=== PATIENT | female | born 1990 | race Two or more races ===

== ENCOUNTER 2019-12-06 12:18 | Inpatient (IN) | payer OTHER ==
[~2019-12-06] VITALS: Ht 175.3 cm; Wt 83.2 kg
[2019-12-06] MEDS ORDERED: PRENTAB9 PO (12:33)
[2019-12-06 12:40] VITALS: BP 113/69
[2019-12-06] MEDS ORDERED: miSOPROStol 50 MCG 1/2 TAB (S0191) PO ONE (14:30)
[2019-12-06 14:38] LABS: HEMATOCRIT 36.2 % (36.0-47.0); HEMOGLOBIN 11.6 g/dl (12.0-15.5); MEAN CORPUSCULAR HEMOGLOBIN 27.2 pg (27.0-33.0); PLATELET COUNT, AUTOMATED 269 10^3/uL (150-450); RED BLOOD COUNT 4.26 10^6/uL (4.00-5.40); WHITE BLOOD COUNT 10.1 10^3/uL (4.0-10.0)
--- NOTE | 2019-12-06 15:41 | HPE ---
DATE OF ADMISSION: 12/06/2019 A 29-year-old 2, para 1, last menstrual period (LMP) 02/22/2019, estimated date of confinement (EDC) 11/29/2019 at 40 and 3/7 weeks for induction of labor post term. Risk factor is anemia. PAST HISTORY: February 2012, 39 and five weeks spontaneous vaginal delivery, 8 pounds, 7 ounces. LABORATORY DATA: A+, HIV negative, hepatitis negative, RPR negative. Varicella immune. Pap shows ASCUS, HPV positive. Urine was negative. Gonorrhea and chlamydia are negative. One-hour GTT was 100. GBS is positive. On pelvic examination, the cervix is posterior, fingertip, high, almost dilatable, fixed and closed. No vaginal bleeding or discharge. Blood pressure 113/69, respirations are 18, pulse is 91. Urine is 10.00, pH of 6, and the rest is negative. The rest examination is unremarkable. She is normocephalic, atraumatic. Neck: Full range of motion. Pupils equal and reactive to light. Distal pulses are symmetrical. No evidence of deep vein thrombosis (DVT), pulmonary embolism (PE) or superficial phlebitis. Chest is clear bilaterally to bases. No wheezes or rhonchi. No costovertebral angle (CVA) tenderness. Category 1 strip. She has a nontender uterus. Four quadrant bowel sounds are noted. No rashes, lesions or pruritus. No arthralgia or myalgia. No complaint of joint pain. No complaint cough, wheeze, shortness of breath, or dyspnea on exertion. No bleeding. Neurologically complete. No incontinence, urgency, or frequency. No nausea, vomiting, diarrhea or constipation. No diabetic issues. No heat or cold sensitivity. GYNECOLOGIC ISSUES: She is human papillomavirus (HPV) positive, atypical squamous cells of undetermined significance (ASCUS) Pap. Past medical and surgical history is unremarkable. Family history is noncontributory. She does not smoke, drink, or abuse drugs. She is to a soldier. No domestic violence and good support system. We discussed labor and delivery in which delivery is vaginal delivery through the vagina, the possibility of the use of forceps or vacuum devices if needed for maternal and indications. These are devices that can assist with vaginal delivery when normal pushing efforts cannot achieve delivery on their own or when delivery is needed in an emergency for baby's well-being. Medications may be used to induce or augment labor in order achieve vaginal delivery. An episiotomy may be required in order deliver baby through the vagina. You may also require repair of any lacerations or tears of the vagina or vulva that are caused by delivery. In some cases, emergencies can arise that may require emergency section which is done only for medical indications. This will be discussed with you prior to implementation and it is probably safer for the mother and baby than continuing labor and is only performed when critical indications are present. The risk of vaginal delivery include but not limited to bleeding, infection, injury to the vagina, pelvic structures, injury to the baby, damage to the uterus, reaction to anesthesia, uterine rupture, risk of hysterectomy for life-threatening bleeding situations, medications used to induce or augment labor increase may increase the risk for infection, uterine tachysystole, uterine rupture, heart rate abnormalities, need for emergency section or possible hysterectomy and bleeding. The use of forceps or vacuums may increase the risk of perineal or vaginal lacerations, risk of injury to the bowel or bladder, and the risks to the baby may include scratches, hematomas on the head or intracranial bleed. After understanding and answering all questions, a 30-minute discussion, it was safe to proceed. Our plan of management is IV fluids, Cytotec by mouth, reassessment in four hours, and group B Streptococcus (GBS) prophylaxis when in labor.
[2019-12-06 17:04] VITALS: BP 121/71
[2019-12-06] MEDS ORDERED: miSOPROStol 25 MCG 1/4 TAB (S0191) PO ONE (18:30)
[2019-12-06 19:52] VITALS: BP 120/73
[2019-12-06] MEDS ORDERED: PENICILLIN G POTASSIUM 5 MU VIAL As Ordered ONE (23:46)
[2019-12-07] VITALS (41 sets, daily range): BP systolic 99–136; BP diastolic 58–89
[2019-12-07] MEDS ORDERED: PENICILLIN G POTASSIUM IV 5 MU in D5W MINI-BAG PLUS 100 ML IV ONE (00:15)
[2019-12-07] MEDS ORDERED: FENTANYL 2MCG/ML ROPIVACAINE 0.2% IN 0.9% NACL 100ML IVBAG As Ordered ONE (01:39)
[2019-12-07] MEDS ORDERED: FENTANYL/ROPIVACAINE/NACL BAG 100 ML EPIDURAL SCH (03:15)
[2019-12-07] MEDS ORDERED: ePHEDrine SULFATE 25 MG/5 ML(5MG/ML) SYRINGE IV PRN (03:15)
[2019-12-07] MEDS ORDERED: EPIDURAL COMMENT XX SCH (03:15)
[2019-12-07] MEDS ORDERED: diphenhydrAMINE 50MG/ML VIAL (J1200) IV PRN (03:15)
[2019-12-07] MEDS ORDERED: LACTATED RINGER'S 1000 ML IV PRN (03:15)
[2019-12-07] MEDS ORDERED: NALOXONE INJ 0.4MG/1ML VIAL (J2310 PER 1MG) IV PRN (03:15)
[2019-12-07] MEDS ORDERED: REFRIGERATOR IV KEYS XX PRN (03:15)
[2019-12-07] MEDS ORDERED: EPIDURAL/PCA KEYS XX PRN (03:15)
[2019-12-07] MEDS ORDERED: ONDANSETRON 4MG/2ML VIAL IV PRN (03:15)
[2019-12-07] MEDS ORDERED: PENICILLIN 100,000 U/ML SYRINGE 2.5MU As Ordered ONE (04:18)
[2019-12-07] MEDS ORDERED: PENICILLIN G POTASSIUM IV 2.5 MU in IV 1 EA IV SCH (04:30)
[2019-12-07] MEDS ORDERED: OXYTOCIN 30 UNITS IN 0.9% NaCl 500ML IV BAG (J2590) As Ordered ONE (04:38)
[2019-12-07] MEDS ORDERED: OXYTOCIN DRIP 30 UNITS in IV 1 EA IV SCH ×2 (04:45→07:58)
[2019-12-07 07:59] LABS: CORD GAS ABE A -5.8; CORD GAS HCO3 A 21.9 MEQ/L; CORD GAS O2 SAT A 24.8 %; CORD GAS PCO2 A 51.6 mmHg; CORD GAS PH A 7.245 UNITS; CORD GAS PO2 A 17.7 mmHg; CORD GAS SBC A 18.2 MEQ/L; CORD GAS TCO2 A 23.5 MEQ/L
[2019-12-07] MEDS ORDERED: MOM 30ML SUSPENSION UDC PO PRN (08:00)
[2019-12-07] MEDS ORDERED: METHYLERGONOVINE MALEATE 0.2 MG TAB PO PRN (08:00)
[2019-12-07] MEDS ORDERED: DIBUCAINE 1% OINTMENT 30GM TOP PRN (08:00)
[2019-12-07] MEDS ORDERED: MEASLES,MUMPS,RUBELLA VACCINE INJ (MMR-II) (90707) SC SCH (08:00)
[2019-12-07] MEDS ORDERED: IBUPROFEN 600 MG TAB PO PRN (08:00)
[2019-12-07] MEDS ORDERED: ACETAMINOPHEN 500 MG TAB PO PRN (08:00)
[2019-12-07] MEDS ORDERED: ACETAMINOPHEN TAB 650MG DOSE (2X325MG) PO PRN (08:00)
[2019-12-07] MEDS ORDERED: RHOGAM 300 MCG (1500 IU) INJ (J2790) IM SCH (08:00)
[2019-12-07] MEDS ORDERED: DOCUSATE SODIUM 100 MG CAP PO PRN (08:00)
[2019-12-07] MEDS ORDERED: ANUSOL HC CREAM 30GM TOP PRN (08:00)
[2019-12-07 08:01] LABS: CORD GAS ABE V -6.7; CORD GAS HCO3 V 20.2 MEQ/L; CORD GAS O2 SAT V 35.4 %; CORD GAS PCO2 V 45.4 mmHg; CORD GAS PH V 7.266 UNITS; CORD GAS PO2 V 19.6 mmHg; CORD GAS SBC V 17.7 MEQ/L; CORD GAS TCO2 V 21.6 MEQ/L
[2019-12-07] MEDS: PRENATAL VITAMINS CHEWABLE TABLET PO SCH (09:00)
[2019-12-07 10:00] LABS: RUBELLA IgG QUALITATIVE IMMUNE (IMMUNE)
--- NOTE | 2019-12-07 13:56 | IPN ---
DATE OF SERVICE: 12/07/2019 at 4:20 a.m. This lady has an epidural in place. She is 4 hours since her first dose of penicillin for GBS positive. 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 We anticipate vaginal delivery.
--- NOTE | 2019-12-07 13:59 | IPN ---
DATE OF SERVICE: 12/07/2019 at 0003 a.m. This lady had Cytotec times two, at this time for another Cytotec assessment shows that she is about 4 cm dilatation with bulging membranes. She is hermelindo moderate intensity about 2-4 minutes apart. Requires prophylactic penicillin because of GBS prior to artifical rupture of membranes (AROM). Therefore, we encouraged her to have an epidural, have her IV penicillin and in 4 hours anticipate that she will progress to the point where AROM will be appropriate. The patient expressed understanding. 20 minute discussion. All questions were answered. The epidural is consulted to anesthesia.
--- NOTE | 2019-12-07 16:23 | DN ---
DATE: DELIVERY NOTE: This lady is a 29-year-old, 2, para 1, admitted for induction of labor post term gestation. She had two lots of Cytotec followed by an artifical rupture of membranes (AROM) and augmentation with Pitocin after epidural placed. She had a spontaneous vaginal delivery female infant in the persistent occiput posterior (POP) position, 7 pounds 11 ounces (3500 grams), score 8 and 9 at one and five minutes, respectfully. Terminal meconium was noted at delivery. Arterial pH 7.24, base excess -5.8. Venous pH 7.26, base excess -0.7. She had a spontaneous midline episiotomy, which was oversewn in the usual fashion with #2-0 Vicryl and [id number]. Sphincter was intact. Anterior, posterior and lateral peck were complete. Bynum catheter was still in. There was some tinge of bloody urine because of the POP position. Uterus contracted well down on Pitocin. Placenta had three-vessel, membranes and tissues intact. Uterus was well contracted. Estimated blood loss 200 mL.
[2019-12-07] MEDS: IBUPROFEN 800 MG TAB PO PRN (23:39)
[2019-12-08 05:47] VITALS: BP 109/66
[2019-12-08 07:13] LABS: HEMATOCRIT 32.8 % (36.0-47.0); HEMOGLOBIN 10.4 g/dl (12.0-15.5); MEAN CORPUSCULAR HEMOGLOBIN 27.6 pg (27.0-33.0); MEAN CORPUSCULAR HGB CONC 31.7 g/dl (32.0-36.5); PLATELET COUNT, AUTOMATED 224 10^3/uL (150-450); RED BLOOD COUNT 3.77 10^6/uL (4.00-5.40); WHITE BLOOD COUNT 13.2 10^3/uL (4.0-10.0)
[2019-12-08] MEDS: PRENATAL VITAMINS CHEWABLE TABLET PO SCH (07:42)
[2019-12-08] MEDS: IBUPROFEN 800 MG TAB PO PRN (07:42)
--- NOTE | 2019-12-08 08:35 | IPNPDOC ---
Progress Note Date of Service: Dec 08, 2019 Day#: 1 Progress Note PPD 1 SUBJECT: Divina is a 29yo [id number] s/p uncomplicated at term after IOL for LTG, doing well on PPD1. She has been ambulating, voiding spontaneously without issue and tolerating regular diet. Breast feeding without issue. Reports lochia is like a normal period. No f/c/n/v/CP/SOB. OBJECTIVE: VITAL SIGNS: Within normal limits, afebrile. Alert and oriented times three. Abdomen: Fundus firm at U-2. Soft, NTTP. Extremities: no pain with palpation of calves ASSESSMENT: Divina is a 29yo [id number] s/p uncomplicated at term after IOL for LTG, doing well on PPD1. Vitals within normal limits, afebrile, hemo dynamically stable with no evidence of infection. PLAN: 1. Discharge to home today. 2. Tylenol and Motrin for pain. 3. Encourage breast feeding and ambulation. 4. Undecided regarding contraception 5. Routine PP visit in 6 weeks in clinic. 6. Discussed return precautions at length. Dr. Janelle Mijares MD VS, I&O, 24H, Fishbone Vital Signs/I&O Vital Signs Date Time Temp Pulse Resp B/P (MAP) Pulse Ox O2 Delivery O2 Flow Rate FiO2 12/08/19 05:47 97.3 79 18 109/66 (80) I&O- Last 24 Hours up to 6 AM 12/08/19 06:00 Intake Total 1000 ml Output Total 1500 ml Balance -500 ml Laboratory Data 24H LABS Laboratory Tests 2 12/08/19 06:34: Nucleated Red Blood Cells % (auto) 0.0 CBC/BMP Laboratory Tests 12/08/19 06:34 Janelle Mijares MD Dec 08, 2019 08:35
[2019-12-08] MEDS ORDERED: DOCU100C16 PO (08:36)
[2019-12-08] MEDS ORDERED: ACET-683 PO (08:36)
--- NOTE | 2019-12-08 08:39 | DS.PDOC ---
Discharge Summary General Date of Admission Dec 06, 2019 at 12:18 Date of Discharge Dec 08, 2019 Discharge Summary PROCEDURES PERFORMED DURING STAY: spontaneous vaginal delivery ADMITTING DIAGNOSES: 1. LTG IOL DISCHARGE DIAGNOSES: 1. LTG IOL, delivered COMPLICATIONS/CHIEF COMPLAINT: Induction. HISTORY OF PRESENT ILLNESS/HOSPITAL COURSE: Divina is a 29yo [id number] s/p uncomplicated at term after IOL for LTG, doing well on PPD1. Benign PP course .Vitals within normal limits, afebrile, hemodynamically stable with no evidence of infection. DISCHARGE MEDICATIONS: Please see below. ALLERGIES: Please see below. PHYSICAL EXAMINATION ON DISCHARGE: VITAL SIGNS: Within normal limits, afebrile. Alert and oriented times three. Abdomen: Fundus firm at U-2. Soft, NTTP. Extremities: no pain with palpation of calves LABORATORY DATA: Please see below. ACTIVITY: vaginal rest, no heavy lifting DIET: regular DISPOSITION: home DISCHARGE INSTRUCTIONS: 1. Discharge to home today. 2. Tylenol and Motrin for pain. 3. Encourage breast feeding and ambulation. 4. Undecided regarding contraception 5. Routine PP visit in 6 weeks in clinic. 6. Discussed return precautions at length. DISCHARGE CONDITION: Stable TIME SPENT ON DISCHARGE: Greater than [address] Janelle Mijares MD Vital Signs/I&Os Vital Signs Date Time Temp Pulse Resp B/P (MAP) Pulse Ox O2 Delivery O2 Flow Rate FiO2 12/08/19 05:47 97.3 79 18 109/66 (80) I&O- Last 24 Hours up to 6 AM 12/08/19 06:00 Intake Total 1000 ml Output Total 1500 ml Balance -500 ml Laboratory Data Labs 24H Laboratory Tests 2 12/08/19 06:34: Nucleated Red Blood Cells % (auto) 0.0 CBC/BMP Laboratory Tests 12/08/19 06:34 Discharge Medications Scheduled No.137/Iron/Folic Acd ( Vitamin Tablet) 1 Each Tablet, 1 TAB PO DAILY, (Reported) Scheduled PRN Acetaminophen (Acetaminophen) 500 Mg Tablet, 1,000 MG PO Q6HP PRN for PAIN LEVEL 6-10 Docusate Sodium (Docusate Sodium) 100 Mg Capsule, 100 MG PO QHSP PRN for CONSTIPATION Allergies Coded Allergies: lactose (Verified Allergy, Unknown, 12/06/19) Janelle Mijares MD Dec 08, 2019 08:39
== END 2019-12-08 12:15 | disposition home or self-care (01) | DRG 807 ==
LOC: M LDI 12:18 → M OBS 12-07 10:18
PROVIDERS: ADMIT Obstetrics & Gynecology; ATTEND Obstetrics & Gynecology
PROC: 10E0XZZ Delivery of Products of Conception, External Approach (ICD-10-PCS; principal; 2019-12-06)
PROC: 0W8NXZZ Division of Female Perineum, External Approach (ICD-10-PCS; 2019-12-06)
PROC: 10907ZC Drainage of Amniotic Fluid, Therapeutic from Products of Conception, Via Natural or Artificial Opening (ICD-10-PCS; 2019-12-06)
PROC: 3E0P7GC Introduction of Other Therapeutic Substance into Female Reproductive, Via Natural or Artificial Opening (ICD-10-PCS; 2019-12-06)
DX: O48.0 Post-term pregnancy (principal); Z37.0 Single live birth; Z3A.40 40 weeks gestation of pregnancy; O99.824 Streptococcus B carrier state complicating childbirth; O64.0XX0 Obstructed labor due to incomplete rotation of fetal head, not applicable or unspecified